=== PATIENT | female | born 1985 | race Two or more races ===

== ENCOUNTER 2024-06-27 14:30 | Emergency (ER) | payer MEDICAID ==
[~2024-06-27] VITALS: Ht 170.2 cm; Wt 100.0 kg
[2024-06-27 15:25] LABS: Urine Bacteria FEW /hpf (None Seen); Urine Blood 3+ /uL (Negative); Urine Clarity Turbid (Clear); Urine Color Light-Orange (Yellow); Urine Mucus FEW (None Seen); Urine Protein, UAD TRACE (Negative); Urine Specific Gravity 1.029 (1.001-1.035); Urine Squamous Epithelial Cell MOD /hpf (<5); Urine Urobilinogen Normal (Negative); Urine WBC 9 /HPF (0-5)
--- NOTE | 2024-06-27 16:13 | ED.PDOC ---
General HPI Comments a 39 YEAR OLD FEMALE PRESENTS TO THE ED WITH CHIEF COMPLAINT OF FLANK PAIN AND URINARY SYMPTOMS. PATIENT REPORTS THAT SHE HAS BEEN EXPERIENCING RIGHT SIDED FLANK PAIN WITH ASSOCIATED DYSURIA, HEMATURIA, AND NAUSEA FOR THE PAST 2 DAYS. PATIENT RELAYS THAT SHE HAS HISTORY OF KIDNEY STONES AND SURGERY ON HER RIGHT KIDNEY FOR STONE REMOVAL BACK IN 05/16/24. PATIENT STATES SHE CONTACTED HER UROLOGIST DR. ACEVEDO AND HE ADVISED HER TO COME TO THE ED FOR FURTHER EVALUATION. PATIENT NOTES THAT A RECENT CT SCAN SHOWED STONES STILL PRESENT IN HER RIGHT KIDNEY. PATIENT DENIES ANY VOMITING, ABDOMINAL PAIN, VAGINAL BLEEDING, FEVER, OR CHILLS. Chief Complaint: Urinary Time Seen by MD: 16:08 Primary Care Provider: CURTIS Reviewed notes: Nurses Notes, Medications, Allergies Allergies: Coded Allergies: NO KNOWN ALLERGIES (Unverified , 01/08/24) Home Meds Active Scripts Hydrocodone-Acetaminophen (Hydrocodone Bitartrate/AC 10-325 mg) 1 Tab Tab, 1 TAB PO TID, #12 TAB Prov:ROSSI GEORGES 06/27/24 Tamsulosin Hcl (Flomax) 0.4 Mg Cap, 1 CAP PO DAILY, #20 CAP Prov:ROSSI GEORGES 06/27/24 Information Source: Patient Mode of Arrival: Ambulatory Severity: Moderate Inability to void: None Timing: Days Duration: Since onset Prehospital treatment: None Onset: Spontaneous Symptoms: Dysuria, Hematuria History of: Kidney stone Location: (R) Flank Modifying factors: None associated signs and symptoms: Nausea, Flank Pain, Dysuria, Hematuria Past Medical History PAST MEDICAL HISTORY: Asthma, Kidney Stones Surgical History: Surgical History (Other): KIDNEY STONE 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 COMMUNICATIONS PROGRAMMER Hx Family History Family History: No family hx of Cancer, No family hx of DM, No family hx of Heart komal, No family hx ofKidney komal, No family hx of Liver komal, No family hx of Lung komal, No family hx of Stroke, Family hx of HTN Social History Smoker: Non-Smoker Alcohol: Denies ETOH Use Drugs: Denies Drug Use Lives In: Home Constitutional: denies: chills, diaphoresis, fatigue, fever, malaise, sweats, weakness, others EENTM: denies: blurred vision, double vision, ear bleeding, ear discharge, ear drainage, ear pain, ear ringing, eye pain, eye redness, hearing loss, mouth pain, mouth swelling, nasal discharge, nose bleeding, nose congestion, nose pain, photophobia, tearing, throat pain, throat swelling, voice changes, others Respiratory: denies: cough, hemoptysis, orthopnea, SOB at rest, shortness of breath, SOB with excertion, stridor, wheezing, others Cardiovascular: denies: chest pain, dizzy spells, diaphoresis, Dyspnea on exertion, edema, irregular heart beat, left arm pain, lightheadedness, palpitations, PND, syncope, others Gastrointestinal: reports: nausea; denies: abdomen distended, abdominal pain, blood streaked bowels, constipated, diarrhea, dysphagia, difficulty swallowing, hematemesis, melena, poor appetite, poor fluid intake, rectal bleeding, rectal pain, vomiting, others Genitourinary: reports: dysuria, flank pain, hematuria; denies: abnormal vagina bleeding, burning, dyspareunia, frequency, incontinence, pain, , vagina discharge, urgency, others Neurological: denies: dizziness, fainting, headache, left sided numbness, left sided weakness, numbness, paresthesia, pre-existing deficit, right sided numbness, right sided weakness, seizure, speech problems, tingling, tremors, weakness, others Musculoskeletal: denies: back pain, gout, joint pain, joint swelling, muscle pain, muscle stiffness, neck pain, others Integumetry: denies: bruises, change in color, change in hair/nails, dryness, laceration, lesions, lumps, rash, wounds, others Allergic/Immunocompromised: denies: Difficulty Healing, Frequent Infections, Hives, Itching, others Hematologic/Lymphatic: denies: anemia, blood clots, easy bleeding, easy bruising, swollen glands, others Endocrine: denies: excessive hunger, excessive sweating, excessive thirst, excessive urination, flushing, intolerance to cold, intolerance to heat, u nexplained weight gain, unexplained weight loss, others Psychiatric: denies: anxiety, bipolar disorder, depression, hopeless, panic disorder, schizophrenia, sleepless, suicidal, others All Other Systems: Reviewed and Negative Physical Exam General Appearance: Mild Distress, Obese, Other (ANXIOUS ) HEENT: Normal ENT Inspection, PERRL/EOMI Neck: Full Range of Motion, Non-Tender, Normal, Normal Inspection Respiratory: Chest Non-Tender, Lungs Clear, No Accessory Muscle Use, No Respiratory Distress, Normal Breath Sounds Cardiovascular: No Edema, No JVD, No Murmur, No Gallop, Normal Peripheral Pulses, Regular Rate/Rhythm Breast Exam: Deferred Gastrointestinal: No Organomegaly, No Pulsatile Mass, Normal Bowel Sounds, Soft, Tenderness (RIGHT FLANK WITH CVA TENDERNESS, NO GUARDING AND REBOUND TENDERNESS. ) Genitalia: Deferred Pelvic: Deferred Rectal: Deferred Extremities: No calf tenderness, Normal capillary refill, Normal inspection, Normal range of motion, Non-tender, No pedal edema Musculoskeletal : Apperance: Normal Neurologic: Alert, solar business developer II-XII nml as Tested, No Motor Deficits, Normal Affect, Normal Mood, No Sensory Deficits Cerebellar Function: Normal Reflexes: Normal Skin: Dry, Normal Color, Warm Peripheral Pulses: 2+ carotid (R), 2+ carotid (L) Lymphatic: No Adenopathy Was a procedure done? Was a procedure done?: No Differential Diagnosis Kidney stone (Female): Musculoskeletal pain, Pyelonephritis, Urinary obstruction, Urolithiasis Urinary Problem (Female): Pyelonephritis, Urolithiasis, UTI X-Ray, Labs, Meds, VS Vital Signs Date Time Temp Pulse Resp B/P (MAP) Pulse Ox O2 Delivery O2 Flow Rate FiO2 06/27/24 17:34 98.6 96 20 131/71 (91) 97 98.6 06/27/24 15:27 94 20 97 Room Air 06/27/24 15:27 97.9 94 20 117/83 (94) 97 97.9 06/27/24 14:38 97.9 94 20 117/83 (94) 97 97.9 Lab Test 06/27/24 14:37 Range/Units Urine Color Light-orange Yellow Urine Clarity Turbid H Clear Urine pH 6.0 5.0-9.0 Urine Specific [place] 1.029 1.001-1.035 Urine Protein Trace H Negative Urine Ketones Negative Negative Urine Blood 3+ H Negative /uL Urine Nitrite Negative Negative Urine Bilirubin Negative Negative Urine Urobilinogen Normal Negative mg/dL Urine Leukocyte Esterase Negative Negative /uL Urine RBC 6 0 - 4 /hpf Urine Microscopic WBC 9 H 0-5 /HPF Urine Squamous Epithelial Cells Mod <5 /hpf Urine Bacteria Few H None Seen /hpf Urine Mucus Few None Seen Urine Glucose Normal Normal mg/dL Current Medications Medications (Trade) Dose Ordered Sig/Ralph Route Start Time Stop Time Status Last Admin Ketorolac Tromethamine (Toradol Injection) 60 mg ONCE ONCE IM 06/27/24 16:45 06/27/24 16:46 DC 06/27/24 16:54 Ondansetron HCl (Zofran Po) 4 mg ONCE ONCE PO 06/27/24 16:45 06/27/24 16:46 DC 06/27/24 16:54 IMPRESSION: 1. 2 mm calculus near the right ureterovesical junction most likely representing a distal right ureteral calculus. (series 2 ; image 83) Radiation optimization: All CT scans at this facility use at least one of these dose optimization techniques: automated exposure control mA and/or kV adjustment per patient size (includes targeted exams where dose is matched to clinical indication) or iterative reconstruction. X-Ray, Labs, Meds, VS Comment EXTERNAL MEDICAL RECORDS REVIEWED: [NONE] INDEPENDENT HISTORIANS: [NONE] SOCIAL DETERMINANTS OF HEALTH: [NONE] LABS ORDERED: UA REVIEWED AND INTERPRETED RESULTS: CT ABD/PEL IMAGING ORDERED: CT ABD/PEL TREATMENTS ORDERED: TORADOL 60MG IM AND ZOFRAN 4MG PO PROCEDURES PERFORMED: NONE CRITICAL CARE TIME: NONE I HAVE DISCUSSED THE PATIENT WITH THE ATTENDING PHYSICIAN DR. DOMÍNGUEZ] AND HE AG SRIKANTH WITH THE PATIENT'S PLAN OF CARE AND DISPOSITION. BASED ON HISTORY OF PRESENT ILLNESS, AND PHYSICAL EXAM, PATIENT WILL BE D ISCHARGED HOME. DISCUSSED PLAN FOR DISCHARGE HOME WITH RX: NORCO AND FLOMAX. MEDICATION WARNINGS GIVEN. SHARED DECISION MAKING: DISCUSSED WITH PATIENT THAT THEIR WORKUP WAS NORMAL. PATIENT INSTRUCTED TO FOLLOW UP WITH PRIMARY CARE PROVIDER IN 1-2 DAYS FOR RE- EVALUATION OF SYMPTOMS. PATIENT VERBALIZES UNDERSTANDING TO RETURN TO ED FOR NEW OR WORSENING SYMPTOMS OR IF FOLLOW UP WITH PCP CANNOT BE OBTAINED. PATIENT FEELS COMFORTABLE GOING HOME AT THIS TIME. ALL QUESTIONS ADDRESSED AT TIME OF DISCHARGE. Time of 1ST Reevaluation: 17:43 Reevaluation 1ST: Improved Patient Education/Counseling: Diagnosis, Treatment, Need For Follow Up Family Education/Counseling: Diagnosis, Treatment, No Family Present Medical Screening: No EMC Exist At This Time Departure 1 Departure Time of Disposition: 17:44 Impression: Primary Impression: Calculus of right kidney Disposition: 01 HOME / SELF CARE / HOMELESS Condition: Stable Additional Instructions: FOLLOW-UP WITH PCP IN 1 TO 2 DAYS. TAKE MEDICATIONS PRESCRIBED. RETURN TO ED FOR ANY NEW OR WORSENING SYMPTOMS. e-Prescriptions Hydrocodone-Acetaminophen (Hydrocodone Bitartrate/AC 10-325 mg) 1 Tab Tab 1 TAB PO TID, #12 TAB Prov: ROSSI GEORGES 06/27/24 Tamsulosin Hcl (Flomax) 0.4 Mg Cap 1 CAP PO DAILY, #20 CAP Prov: ROSSI GEORGES 06/27/24 Discharged With: Self, Relative Critical Care Note Critical Care Time?: No Stability Stability form required: No Heart Score Heart Score: Heart Score Response (Comments) Value History N/A 0 EKG N/A 0 Age N/A 0 Risk Factors N/A 0 Troponin N/A 0 Total 0 I personally scribed for ROSSI GEORGES ([email or web address]) on 06/27/24 at 16:13. Electronically submitted by Brett Caceres ([email or web address]). I personally scribed for ROSSI GEORGES ([email or web address]) on 06/27/24 at 16:18. Electronically submitted by Brett Caceres ([email or web address]). ROSSI GEORGES Jun 27, 2024 16:13
[2024-06-27] MEDS: ONDANSETRON ODT 4 MG TAB PO ONE (16:54)
[2024-06-27] MEDS: KETOROLAC TROMETH 60MG/2ML VIAL IM ONE (16:54)
--- NOTE | 2024-06-27 17:00 | DVH ---
Exam: CT CT AB PEL WO CON-NO ORAL OR IV History: RIGHT FLANK PAIN, HX OF KIDNEY STONE Comparison Study: None available at time of dictation. TECHNIQUE: Multidetector CT of the abdomen was performed from lung bases to pubic symphysis. Imaging was performed without IV contrast. Axial, coronal and sagittal multiplanar reformats were obtained fr om the axial data set by the technologist. Radiation Dose Information: CT Dose: CTDI volume is 13.05 mGy. Dose-length product is 708.48 mGy*cm FINDINGS: Evaluation of solid organs is limited due to lack of intravenous contrast use. Findings: Lung Bases: No acute or significant lung base finding. Normal heart size. No pleural or pericardial effusion. Liver: The liver is normal in size. No focal lesions. Findings consistent with hepatic steatosis Gallbladder and Biliary Tree: Unremarkable Spleen: Unremarkable Pancreas: The pancreas is grossly normal in appearance. Adrenal Glands: Unremarkable Kidneys: Kidneys are grossly normal without calculi or hydronephrosis. Bladder: 2 mm calculus near the right ureterovesical junction may represent distal ureteral calculus. Bowel: The stomach is grossly normal in appearance. Small bowel and colon are normal in caliber and d istribution. The appendix is not visualized; however, no secondary findings of acute appendicitis id entified. Ascites: Absent Lymphadenopathy: No mesenteric, retroperitoneal or periportal lymphadenopathy. Abdominal Wall and Mesentery: Unremarkable. Vasculature: The visualized abdominal aorta is normal in size and caliber. Evaluation of abdominal a nd pelvic vessels is limited due to lack of intravenous contrast. Pelvic Organs: Unremarkable Musculoskeletal: No aggressive focal bony lesions, acute fractures or dislocation. Soft tissues: Unremarkable IMPRESSION: 1. 2 mm calculus near the right ureterovesical junction most likely representing a distal right urete ral calculus. (series 2 ; image 83) Radiation optimization: All CT scans at this facility use at least one of these dose optimization manas hniques: automated exposure control mA and/or kV adjustment per patient size (includes targeted exam s where dose is matched to clinical indication) or iterative reconstruction.
[2024-06-27] MEDS ORDERED: HYDR-4798 PO (17:32)
[2024-06-27] MEDS ORDERED: TAMS-35 PO (17:32)
[2024-06-27 17:34] VITALS: BP 131/71; PULSE 96; RESP 20; TEMP 98.6; O2SAT 97
== END 2024-06-27 17:37 | disposition home or self-care (01) ==
LOC: ER 14:34
DX: N20.2 Calculus of kidney with calculus of ureter (principal); J45.909 Unspecified asthma, uncomplicated; Z87.442 Personal history of urinary calculi; Z79.899 Other long term (current) drug therapy; Z98.890 Other specified postprocedural states
CPT/HCPCS: 74176; 81001; 96372; 99285; J1885; Q0162